=== PATIENT | female | born 1955 | race Caucasian/White ===

== ENCOUNTER → 2023-03-11 | Outpatient (CLI) | payer MEDICARE, OTHER ==
[~2023-03-11] MED LIST: ASPI81CH PO; FURO20 PO; MELO7.5 PO; Nitroglycerin0.4 MG SL
[2023-03-11 17:05] LABS: Albumin, Blood 3.7 g/dL (3.4-5.0); Albumin/Globulin Ratio 0.9 (0.8-1.8); Bilirubin, Total 0.4 mg/dL (0.1-1.0); Bun/Creatinine Ratio 23.7 (12.0-20.0); Calcium, Blood 8.9 mg/dL (8.5-10.1); Creatinine, Blood 0.68 mg/dL (0.40-1.00); Globulin, Blood 4.1 g/dL (2.2-4.0); Potassium, Blood 4.1 mmol/L (3.5-5.5); Total Protein, Blood 7.8 g/dL (6.4-8.2)
== END ==
LOC: LAB SHORT 11:40 → LAB 11:40
PROVIDERS: Physician Assistant
DX: R73.03 Prediabetes (principal)
CPT/HCPCS: 80053; 83036

== ENCOUNTER → 2023-10-20 | Outpatient (CLI) | payer MEDICARE, OTHER ==
[2023-10-20 14:09] LABS: Albumin/Globulin Ratio 0.6 (0.8-1.8); Bilirubin, Total 0.6 mg/dL (0.1-1.0); Bun/Creatinine Ratio 25.7 (12.0-20.0); Calcium, Blood 8.7 mg/dL (8.5-10.1); Creatinine, Blood 0.58 mg/dL (0.40-1.00); Globulin, Blood 4.8 g/dL (2.2-4.0); Potassium, Blood 3.6 mmol/L (3.5-5.5); Total Protein, Blood 7.8 g/dL (6.4-8.2)
== END | disposition home or self-care (01) ==
LOC: LAB 11:22 → LAB SHORT 11:22
PROVIDERS: Physician Assistant
DX: E78.2 Mixed hyperlipidemia (principal); R74.8 Abnormal levels of other serum enzymes
CPT/HCPCS: 80053

== ENCOUNTER → 2023-11-15 | Outpatient (CLI) | payer MEDICARE, OTHER ==
[2023-11-15 17:43] LABS: Percent Saturation 9.1 % (15.0-50.0)
[2023-11-16 19:07] LABS: HEPATITIS A ANTIBODY, IGM Negative (Negative); HEPATITIS B CORE ANTIBODY, IGM Negative (Negative); HEPATITIS B SURFACE ANTIGEN Negative (Negative); HEPATITIS C AB CIA INTERP Low Pos (Negative); HEPATITIS C ANTIBODY CIA INDEX 9.48 IV
[2023-11-17 17:39] LABS: HCV QNT BY NAAT (IU/ML) Not Detected; HCV QNT BY NAAT (LOG IU/ML) Not Detected; HCV QNT BY NAAT INTERP Not Detected (Not Detected)
== END ==
LOC: LAB SHORT 14:46 → LAB 14:46
PROVIDERS: Physician Assistant
DX: R74.8 Abnormal levels of other serum enzymes (principal)
CPT/HCPCS: 80074; 82728; 83540; 83550; 87522

== ENCOUNTER → 2023-11-28 | Outpatient (CLI) | payer MEDICARE, OTHER ==
[2023-11-28 15:00] LABS: Source, Urine Clean Catch
[2023-11-28 17:10] LABS: Appearance, Urine Hazy (Clear); Blood, Urine Neg (Neg); Color, Urine Amber (P-Yellow); Glucose Qualitative, Urine Neg (Neg); Ketones, Urine Neg (Neg); Leukocyte Esterase, Urine 2+ (Neg); Nitrite, Urine Neg (Neg); Protein, Urine 2+ (Neg); Urobilinogen, Urine 2+ (Normal)
[2023-11-28 18:02] LABS: Bilirubin, Urine 1+ (Neg)
[2023-11-28 18:04] LABS: Red Blood Cells, Urine 0-2 /hpf (0-2); Squamous Epithelial Cells Rare /hpf (Few)
[2023-11-28 18:05] LABS: Amorphous Light (0-Heavy); Bacteria Many /hpf; Calcium Oxalate Crystals Mod /hpf; Mucus Light (0-Heavy); Transitional Epithelial Cells Rare /hpf (0-Rare)
== END | disposition home or self-care (01) ==
LOC: LAB SHORT 14:52
PROVIDERS: Physician Assistant
DX: N39.0 Urinary tract infection, site not specified (principal)
CPT/HCPCS: 81001; 87086

== ENCOUNTER → 2023-11-30 | Outpatient (CLI) | payer MEDICARE, OTHER ==
[2023-11-30 15:32] LABS: Source, Urine Voided
[2023-11-30 16:27] LABS: Appearance, Urine Clear (Clear); Bilirubin, Urine Neg (Neg); Blood, Urine Neg (Neg); Color, Urine Yellow (P-Yellow); Glucose Qualitative, Urine Neg (Neg); Ketones, Urine Neg (Neg); Leukocyte Esterase, Urine Neg (Neg); Nitrite, Urine Neg (Neg); Protein, Urine Neg (Neg); Urobilinogen, Urine NORM (Normal)
== END | disposition home or self-care (01) ==
LOC: LAB SHORT 15:28
PROVIDERS: Physician Assistant
DX: N39.0 Urinary tract infection, site not specified (principal)
CPT/HCPCS: 81003

== ENCOUNTER 2023-12-25 18:41 | Inpatient (IN) | payer MEDICARE, OTHER ==
[~2023-12-25] VITALS: Ht 147.3 cm; Wt 67.7 kg
[2023-12-25] MEDS ORDERED: NS 1,000 ML IV SCH ×2 (19:00→19:35)
[2023-12-25 19:29] LABS: BASOPHILS ABSOLUTE AUTO 0.02 K/mm3 (0.00-0.23); BASOPHILS PERCENT AUTO 0 % (0-2); EOSINOPHILS ABSOLUTE AUTO 0.11 K/mm3 (0.00-0.68); EOSINOPHILS PERCENT AUTO 1 % (0-6); Hematocrit 34.5 % (33.0-51.0); Hemoglobin 11.5 g/dL (11.5-16.0); IMMATURE GRAN ABSOLUTE AUTO 0.03 K/mm3 (0.00-0.10); IMMATURE GRAN PERCENT AUTO 0 % (0-1); LYMPHOCYTES ABSOLUTE AUTO 0.58 K/mm3 (0.84-5.20); LYMPHOCYTES PERCENT AUTO 7 % (21-46); MONOCYTES PERCENT AUTO 4 % (4-13); Mean Corpuscular HGB 28.3 pg (26.0-34.0); Mean Corpuscular HGB Conc 33.3 g/dL (31.5-36.5); Mean Corpuscular Volume 85 fL (80-100); Mean Platelet Volume 9.9 fL (9.1-12.4); NEUTROPHILS PERCENT AUTO 87 % (41-73); Platelet Count 215 K/mm3 (150-400); RDW Coefficient Variation 15.5 % (11.7-14.2); Red Blood Cell Count 4.06 M/mm3 (3.80-5.20); White Blood Cell Count 8.14 K/mm3 (4.00-11.30)
[2023-12-25] MEDS ORDERED: Acetaminophen 500 MG Tab PO ONE (19:35)
[2023-12-25 19:50] LABS: Source, Urine Clean Catch
[2023-12-25 19:52] LABS: Appearance, Urine Clear (Clear); Bilirubin, Urine Neg (Neg); Blood, Urine Neg (Neg); Color, Urine Yellow (P-Yellow); Glucose Qualitative, Urine Neg (Neg); Ketones, Urine Neg (Neg); Leukocyte Esterase, Urine Neg (Neg); Nitrite, Urine Neg (Neg); Protein, Urine 1+ (Neg); Specific Gravity, Urine 1.015 (1.003-1.022); Urobilinogen, Urine 3+ (Normal)
[2023-12-25 19:59] LABS: Free Thyroxine 1.27 ng/dL (0.70-1.60); Magnesium, Blood 1.9 mg/dL (1.6-2.4)
[2023-12-25 20:18] LABS: Bun/Creatinine Ratio 29.4 (12.0-20.0); Calcium, Blood 8.1 mg/dL (8.5-10.1); Creatinine, Blood 0.54 mg/dL (0.40-1.00); Potassium, Blood 4.2 mmol/L (3.5-5.5); Thyroid Stimulating Hormone 0.834 uIU/mL (0.360-4.800)
[2023-12-25 20:30] LABS: Influenza A, PCR NEGATIVE (NEGATIVE); Influenza B, PCR NEGATIVE (NEGATIVE); Resp Syncytial Virus, PCR NEGATIVE (NEGATIVE); SARS-Cov-2 (COVID-19) PCR, MMC NEGATIVE (NEGATIVE)
[2023-12-25] MEDS ORDERED: ATOR20 PO (21:32)
[2023-12-25] MEDS ORDERED: CALCIUM CARBON500 M1 PO (21:33)
[2023-12-25] MEDS ORDERED: ZYRTEC10 M2 PO (21:33)
[2023-12-25] MEDS ORDERED: PANT20 PO (21:34)
[2023-12-25] MEDS ORDERED: ROWEEPRA PO (21:34)
[2023-12-25] MEDS ORDERED: POTA10T PO (21:34)
[2023-12-25] MEDS ORDERED: THERA-D2000 UNIT PO (21:35)
[2023-12-25] MEDS ORDERED: Seroquel Xr50 MG PO (21:35)
[2023-12-25] MEDS ORDERED: TIOT18 INH (21:35)
[2023-12-25] MEDS ORDERED: LevETIRAcetam 500 MG Tab PO ONE (21:50)
[2023-12-25] MEDS ORDERED: Nicotine 21 MG PATCH TOP ONE (21:50)
[2023-12-25] MEDS ORDERED: Ondansetron HCl 2 MG / ML 2ML Vial IV PRN ×2 (22:15→23:05)
[2023-12-25] MEDS ORDERED: Acetaminophen 325 MG TABLET PO PRN ×2 (22:20→23:05)
[2023-12-25] MEDS ORDERED: Magnesium Hydroxide Conc 10 ML UDC PO PRN ×2 (22:20→23:05)
[2023-12-25] MEDS ORDERED: Lactated Ringer's 1,000 ML IV SCH (23:05)
[2023-12-25 23:48] LABS: Anti-Xa UFH, PHA Monitoring <0.10 IU/mL; International Normalized Ratio 1.14; Prothrombin Time Results 12.1 Sec (9.7-11.5)
[2023-12-26] VITALS (7 sets, daily range): BP systolic 93–132; BP diastolic 61–82
[2023-12-26] MEDS ORDERED: Heparin Sodium,Porcine/0.5 NS 500 ML IV SCH (00:15)
[2023-12-26 00:29] LABS: Adenovirus Not Detected (NOT DETECT); Coronavirus 229E Not Detected (NOT DETECT); Coronavirus HKU1 Not Detected (NOT DETECT); Coronavirus NL63 Not Detected (NOT DETECT); Coronavirus OC43 Not Detected (NOT DETECT); SARS-Cov-2 (COVID-19), BioFire Not Detected (NOT DETECT)
[2023-12-26 00:30] LABS: Bordetella pertussis Not Detected (NOT DETECT); Chlamydophila pneumoniae Not Detected (NOT DETECT); Human Metapneumovirus Not Detected (NOT DETECT); Human Rhinovirus/Enterovirus Not Detected (NOT DETECT); Influenza A/2009-H1 Not Detected (NOT DETECT); Influenza A/H1 Not Detected (NOT DETECT); Influenza A/H3 Not Detected (NOT DETECT); Influenza B Not Detected (NOT DETECT); Mycoplasma pneumoniae Not Detected (NOT DETECT); Parainfluenza Virus 1 Not Detected (NOT DETECT); Parainfluenza Virus 2 Not Detected (NOT DETECT); Parainfluenza Virus 3 Not Detected (NOT DETECT); Parainfluenza Virus 4 Not Detected (NOT DETECT); Respiratory Syncytial Virus Not Detected (NOT DETECT)
--- NOTE | 2023-12-26 01:57 | NUR ---
NEW ADMISSION FROM ER PATIENT ADMITTED FROM ER AT 0000, REPORT RECEIVED FROM DEREK CUELLAR. PATIENT ARRIVED WITH PERSONAL BELONINGS: TSHIRT, CANE, COLORING COOK/CRAYONS. PATIENT C/O R KNEE PAIN MEDICATED WITH PRN TYLENOL AND HEAT PAD APPLIED. HEP GTT INITIATED AT 15U/KG/HR, NEW IV PLACED IN RH TO INITIATE LR AT 125/HR, VSS ON RA. SCHUYLER'S DAUGHTER LEI UPDATED AT 0145 ON THE PLAN OF CARE- WILL CALL BACK ON DAY SHIFT FOR ANOTHER UPDATED. MD HANCOCK CALLED WITH CRITICAL TROPONIN VALUE OF 4184 AT 0140- NO NEW ORDERS. PATIENT WITH NO CHEST PAIN OR DISCOMFORT AT THIS TIME, NSR ON TELEMETRY. ALL FALL RISK INTERVENTIONS IN PLACE DUE TO [facility] FELLOW AND PATIENT RESIDING IN A MEMORY CARE UNIT. A&OX3.
[2023-12-26] MEDS ORDERED: Tiotropium Bromide 2.5 MCG/ACT MIST INHAL (10 ACT/4 GM) INH SCH (02:10)
[2023-12-26 03:03] LABS: Hematocrit 30.8 % (33.0-51.0); Hemoglobin 10.3 g/dL (11.5-16.0); Mean Corpuscular HGB 28.2 pg (26.0-34.0); Mean Corpuscular HGB Conc 33.4 g/dL (31.5-36.5); Mean Corpuscular Volume 84 fL (80-100); Mean Platelet Volume 10.5 fL (9.1-12.4); Platelet Count 207 K/mm3 (150-400); RDW Coefficient Variation 15.7 % (11.7-14.2); RDW Standard Deviation 48.8 fL (35.1-46.3); Red Blood Cell Count 3.65 M/mm3 (3.80-5.20); White Blood Cell Count 5.51 K/mm3 (4.00-11.30)
[2023-12-26 03:20] LABS: Bun/Creatinine Ratio 28.3 (12.0-20.0); Calcium, Blood 7.7 mg/dL (8.5-10.1); Creatinine, Blood 0.5 mg/dL (0.40-1.00); Potassium, Blood 3.8 mmol/L (3.5-5.5)
--- NOTE | 2023-12-26 05:09 | NUR ---
Patient with urinary retention during the night, unable to void- straight cath x 1 with 800ml out of clear master urine. Patient complaining of some abdominal pain- last BM 8/25AM but possible constipation per pt- prn MOM given. Pt also has a hernia. Trops continue to rise- 3054, [id number], 4467- instructor product inspection MD notified. repeat troponin ordered for 0900 and echocardiogram ordered to r/o myocarditis as source of infection. Cardiology consult called in- pending. No other events, patient continues to deny chest pain & VSS on RA.
[2023-12-26] MEDS ORDERED: Pantoprazole Sodium 20 MG Tab PO SCH (06:00)
[2023-12-26] MEDS ORDERED: Dose Adjust by Pharmacy XX STA ×3 (07:55→21:56)
[2023-12-26] MEDS ORDERED: Heparin Sodium 5000 Units/ML 1ML MDV IV ONE ×3 (08:00→22:00)
[2023-12-26] MEDS ORDERED: CefTRIAXone 1000 MG Vial ONE (08:42)
[2023-12-26] MEDS ORDERED: NS 100 ML IV ONE (08:42)
[2023-12-26] MEDS ORDERED: LevETIRAcetam 500 MG Tab PO SCH (09:00)
[2023-12-26] MEDS ORDERED: Aspirin 81 MG Chew PO SCH (09:00)
[2023-12-26] MEDS ORDERED: Calcium Carbonate 1,250 MG TABLET PO SCH (09:00)
[2023-12-26] MEDS ORDERED: Enoxaparin 40 MG/0.4 ML SYR SC SCH ×2 (09:00)
[2023-12-26] MEDS ORDERED: CefTRIAXone Sodium 1,000 MG in NS 100 ML IV SCH (09:00)
[2023-12-26] MEDS ORDERED: Potassium Chloride 10 Meq Tablet SA PO SCH (09:00)
[2023-12-26] MEDS ORDERED: Cholecalciferol 1000 Unit Tablet (=25MCG) PO SCH (09:00)
[2023-12-26] MEDS ORDERED: Loratadine 10 MG Tab PO SCH (09:00)
--- NOTE | 2023-12-26 11:10 | NUR ---
AM NOTES; ECHO DONE THIS MORNING PT KEPT NPO AWAITING FOR RECORDS COORDINATOR TO SEE PT. HEP GT WAS INCREASED TO 19U/KG/HR TO REPEAT ANTI XA AT 1400. LR STILL RUNNING AT 125MLS/HR. PT HAS PUREWICK IN PLACE WORKING GOOD, DRAINING YELLOW URINE. PT HAS SPLINT ON LEFT HAND D/T POSS THUMB FX. PT HAS RGHT KNEE PAIN FROM FALL LEGS ELEVATED AT THIS TIME. PT IS ALERT AND ORIENTED X3-4 FORGETFUL AT TIMES. TALKATIVE. PT DENIES CHEST PAIN/PRESSURE. NO OTHER ISSUES OR CONCERNS AT THIS TIME. CALL LIGHTS IN REACH WILL CONTINUE TO MONITOR
--- NOTE | 2023-12-26 14:49 | NUR ---
STRAIGHT CATH DONE, PT TOLERATED WELL AND VOIDED 800ML'S.
--- NOTE | 2023-12-26 15:37 | NUR ---
BOLUS OF HEPRIN GIVEN, VERIFIED DOSE & INFUSION RUNNING BY TWO ADDITIONAL NURSES.
--- NOTE | 2023-12-26 18:07 | NUR ---
PT SUMMARY; PT CONTINUES ON HEP GTT AT 21/KG/HR, LR AT 125MLS/HR. VITALS HRR SR 80'S, SBP 115, SATS ABOVE 95% ON RA, AFEBRILE. PT REMAINS ALERT AND FORGETFUL SOMETIMES REPEATS HERSELF AND TALKATIVE. PT DENIES ANY CHEST PAIN/PRESSURE DR XIE SAW PT TODAY RECOMMENDED HEP GTT INFUSION FOR COUPLE MORE DAYS AND POSSIBLY START PLAVIX SINCE PT IS NOT SYMPTOMATIC AND NOT HAVING CHEST PAINS. PHYSICAL THERAPSIT ABLT TO WORK WITH THE PT, PT HAS BEEN TRANSFERRING VIA 1PA TO THE BEDSIDE COMMODE. PT WAS UNABLE TO VOID T/O SHIFT BLADDER SCAN SHOWED >800MLS URINE RETAINED PT ABLE TO TO VOID 300 MLS STILL RETAINING >700MLS POST VOID BLADDER SCAN, STRAIGHT CATH PERFORMED 800MLS URINE DRAINED. MADE AWARE OKAY TO PLACE CATHETER IF PT STILL UNABLE TO VOID T/O NIGHT, PT WAS ABLE TO USE BSC AGAIN BEFORE SHIFT CHANGE ABOUT 300MLS. DAUGHTER LEI CAME IN TO VISIT AND WAS GIVEN UPDATE REGARDING PT'S STATUS. CT ABD/PELVIS TO BE DONE TECH WAS CALLED TO VERIFY ORDERS TO POSSIBLY GET PROCEDURE DONE TONIGHT. NO OTHER ISSUES ENCOUNTERED WILL REPORT TO ONCOMING SHIFT
[2023-12-26] MEDS ORDERED: QUEtiapine Fumarate 50 MG TAB PO SCH (21:00)
[2023-12-26] MEDS ORDERED: Atorvastatin 10 MG Tab PO SCH (21:00)
[2023-12-27 01:37] VITALS: BP 93/65
[2023-12-27 03:24] VITALS: BP 107/70
--- NOTE | 2023-12-27 03:49 | NUR ---
SHIFT SUMMARY- PATIENT SLEPT WELL TONIGHT, UNEVENTFUL NIGHT. VSS ON RA, PRN TYLENOL GIVEN FOR RIGHT KNEE PAIN. PATIENT GETTING OOB TO BSC WITH ASSIST X2 TO VOID. NO BM THIS SHIFT, PRN MOM GIVEN FOR CONSTIPATION. HEPARIN GTT RATE INCREASED TO 23U/KG/HR OVERNIGHT WITH 1500UNIT BOLUS. IV PATENCY CHECKED- WNL WITH BLOOD RETURN. TOLERATING A SOFT/BITE SIZED DIET. CT ABD COMPLETED AT END OF DAY SHIFT. NO OTHER COMPLAINTS AT THIS TIME.
[2023-12-27 04:37] LABS: BASOPHILS ABSOLUTE AUTO 0.02 K/mm3 (0.00-0.23); BASOPHILS PERCENT AUTO 1 % (0-2); EOSINOPHILS PERCENT AUTO 5 % (0-6); Hematocrit 32.2 % (33.0-51.0); Hemoglobin 10.7 g/dL (11.5-16.0); IMMATURE GRAN ABSOLUTE AUTO 0.02 K/mm3 (0.00-0.10); IMMATURE GRAN PERCENT AUTO 1 % (0-1); LYMPHOCYTES ABSOLUTE AUTO 1.35 K/mm3 (0.84-5.20); LYMPHOCYTES PERCENT AUTO 32 % (21-46); MONOCYTES PERCENT AUTO 5 % (4-13); Mean Corpuscular HGB 28.7 pg (26.0-34.0); Mean Corpuscular HGB Conc 33.2 g/dL (31.5-36.5); Mean Corpuscular Volume 86 fL (80-100); Mean Platelet Volume 10.6 fL (9.1-12.4); NEUTROPHILS ABSOLUTE AUTO 2.44 K/mm3 (1.96-9.15); NEUTROPHILS PERCENT AUTO 58 % (41-73); Platelet Count 174 K/mm3 (150-400); RDW Coefficient Variation 15.7 % (11.7-14.2); RDW Standard Deviation 49.2 fL (35.1-46.3); Red Blood Cell Count 3.73 M/mm3 (3.80-5.20); White Blood Cell Count 4.23 K/mm3 (4.00-11.30)
[2023-12-27 04:56] LABS: Albumin, Blood 1.8 g/dL (3.4-5.0); Albumin/Globulin Ratio 0.4 (0.8-1.8); Bilirubin, Total 0.7 mg/dL (0.1-1.0); Bun/Creatinine Ratio 18.4 (12.0-20.0); Calcium, Blood 8.1 mg/dL (8.5-10.1); Creatinine, Blood 0.54 mg/dL (0.40-1.00); Globulin, Blood 5.1 g/dL (2.2-4.0); Potassium, Blood 3.7 mmol/L (3.5-5.5); Total Protein, Blood 6.9 g/dL (6.4-8.2)
[2023-12-27] MEDS ORDERED: Clarify Drug Order XX ONE (05:15)
[2023-12-27 08:19] VITALS: BP 118/67
[2023-12-27 11:19] VITALS: BP 124/76
[2023-12-27] MEDS ORDERED: Dose Adjust by Pharmacy XX STA (11:43)
[2023-12-27] MEDS ORDERED: Heparin Sodium 5000 Units/ML 1ML MDV IV ONE ×2 (11:45→19:30)
[2023-12-27 15:08] VITALS: BP 138/84
--- NOTE | 2023-12-27 18:15 | NUR ---
SHIFT SUMMARY A&Ox4, CALLS AND COMMUNICATES NEEDS APPROPRIATELY, MOMENTS OF CONFUSION. BP STABLE, SINUS 80's, DENIES CP/PRESSURE. SpO2> 92% RA, DENIES SOB. 1 ASSIST TO CHAIR/BSC, IN/CONTINENT OF URINE, NO BM THIS SHIFT. C/O CHRONIC BACK PAIN, MEDICATED PER EMAR AND PROVIDED HEAT PACK. PT STATES THAT SHE IS READY TO GO HOME. NO OTHER EVENTS, WILL REPORT TO ONCOMING RN.
[2023-12-27 20:24] VITALS: BP 132/62
[2023-12-28 00:09] VITALS: BP 131/84
--- NOTE | 2023-12-28 00:30 | NUR ---
HEPARIN GTT STOPPED AT MD PER ORDER.
[2023-12-28 02:25] LABS: BASOPHILS ABSOLUTE AUTO 0.02 K/mm3 (0.00-0.23); BASOPHILS PERCENT AUTO 1 % (0-2); EOSINOPHILS ABSOLUTE AUTO 0.17 K/mm3 (0.00-0.68); EOSINOPHILS PERCENT AUTO 4 % (0-6); Hematocrit 30.1 % (33.0-51.0); IMMATURE GRAN PERCENT AUTO 0 % (0-1); LYMPHOCYTES ABSOLUTE AUTO 0.99 K/mm3 (0.84-5.20); LYMPHOCYTES PERCENT AUTO 25 % (21-46); MONOCYTES PERCENT AUTO 5 % (4-13); Mean Corpuscular HGB 28.5 pg (26.0-34.0); Mean Corpuscular HGB Conc 33.2 g/dL (31.5-36.5); Mean Corpuscular Volume 86 fL (80-100); Mean Platelet Volume 10.3 fL (9.1-12.4); NEUTROPHILS ABSOLUTE AUTO 2.53 K/mm3 (1.96-9.15); NEUTROPHILS PERCENT AUTO 65 % (41-73); Platelet Count 170 K/mm3 (150-400); RDW Coefficient Variation 15.8 % (11.7-14.2); RDW Standard Deviation 49.4 fL (35.1-46.3); Red Blood Cell Count 3.51 M/mm3 (3.80-5.20); White Blood Cell Count 3.91 K/mm3 (4.00-11.30)
[2023-12-28 02:48] LABS: Albumin, Blood 1.8 g/dL (3.4-5.0); Albumin/Globulin Ratio 0.4 (0.8-1.8); Bilirubin, Total 0.6 mg/dL (0.1-1.0); Bun/Creatinine Ratio 14.1 (12.0-20.0); Calcium, Blood 7.6 mg/dL (8.5-10.1); Creatinine, Blood 0.64 mg/dL (0.40-1.00); Potassium, Blood 3.8 mmol/L (3.5-5.5); Total Protein, Blood 6.8 g/dL (6.4-8.2)
[2023-12-28 04:42] VITALS: BP 98/55
--- NOTE | 2023-12-28 05:09 | NUR ---
SHIFT SUMMARY PT RESTED DURING THE NIGHT. PAIN MANAGED PER EMAR. PT USING PUREWICK FOR VOIDS, YELLOW RUINE DRAINING. TOLERATING PO INTAKE. L WRIST IN SPLINT. PT HAD HEPARIN DRIP STOPPED AT . VSCyndee. NO OTHER CONCERNS AT THIS TIME, CALL LIGHT WITHIN REACH
[2023-12-28] MEDS ORDERED: Clopidogrel Bisulfate 75 MG Tab PO SCH (09:00)
[2023-12-28 09:08] VITALS: BP 133/64
[2023-12-28] MEDS ORDERED: Polyethylene Glycol 3350 17 gm PO PRN (12:10)
[2023-12-28] MEDS ORDERED: Docusate Sodium/Senna 1 Tab PO PRN (12:10)
--- NOTE | 2023-12-28 13:33 | NUR ---
TRANSFER NOTE- PT TRANSFERED TO MEDICAL FLOOR FROM PCU. PT ARRIVED ON MED FLOOR VIA WC, ON ROOM AIR NO S&S OF DISTRESS NOTED, LUNG SOUNDS CLEAR. CALLED TELE THEY TRANSFERED THE PT TO MED FLOOR ROOM 334. PT WAS ASSISTED TO THE BATHROOM 1PA WITH A FWW AND GAIT BELT, SHE USED THE CALL LIGHT AND PULL CORD APPROPRIATELY. PT ASSISTED BACK TO BED, NO S&S OF DISTRESS NOTED; SHE DID STATE SHE HAS THE CHILLS NOW. INCREASED THE ROOM TEMP A LITTLE IT WAS SET LOW.
[2023-12-28 14:38] VITALS: BP 143/84
--- NOTE | 2023-12-28 16:07 | NUR ---
CALLED DR RUSSO- DR RUSSO RETURNED CALL. THIS RN SPOKE TO HIM. THE PT HAS ELEVATED TEMP 99.8 SHE WAS MEDICATED WITH TYLENOL, RECHECK SHOWS 101.5 ON THE RIGHT AND 102.5 ON THE LEFT. SPOKE TO WHO RELAYED ORAL TEMPS ONLY. ORALY POST TYLENOL TEMP IS 99.1. SPOKE TO ABOUT THE PT EARS THE LEFT EYE IS A LITTLE BLOODSHOT IN APPEARANCE AND THE LEFT EAR APPEARS TO BE A LITTLE IRRITATED. DR AWARE AND WILL ASSESS PT EARS TOMORROW. PT HAS NOT YET BEEN SEEN BY ORTHO, BUT THE CONSULT WAS CALLED.
--- NOTE | 2023-12-28 16:25 | NUR ---
SHIFT SUMMARY- PT C/O HAVING THE CHILLS. MD AWARE. TEMP SLIGHTLY ELEVATED. LEFT EYE BLOODSHOT, LEFT EAR SEEMS A LITTLE IRRITATED, MD AWARE. PT IN BED, CALL LIGHT IN REACH NO S&S OF DISTRESS NOTED. PT CALLS APPROPRIATELY INCONTINENT, CONTINENT OF URINE. MEDICATED WITH DOCUSENNA AND MIRALAX PT HAS HAD NO STOOLS DESPITE RECIEVING 3 DOSES OF MOM IN THE LAST 48 HOURS. PT DECLINED PRUNE JUICE, STATING "YUCK!" ORTHO CONSULT IN AND CALLED FOR WRIST FRACTURE.
--- NOTE | 2023-12-28 16:47 | NUR ---
TRANSFERED TO [facility] 334 @1311 PT PLESENT THROUGHT SHIFT, VITAL SIGNS WITHIN NORMAL LIMITS AND STABLE, SEE SHIFT SUMMARY AND CHARTED VITALS FOR MORE INFORMATION, REPORT GIVEN TO [facility] FLOOR NURSE, AND UPDATED DAUGHTER. PT WORKED WITH OT BEFORE LEAVING PCU FLOOR AND WENT DOWN TO X-RAY FOR IMAGING OF THUMB, DOCTOR NOTIFIED OF CONTUNIED BOWEL CARE EMAR UPDATED. PT TRANSFERED WITH ALL BELONGINGS.
[2023-12-28 19:28] VITALS: BP 102/56
[2023-12-29 03:05] VITALS: BP 107/62
--- NOTE | 2023-12-29 05:18 | NUR ---
CHANNEL ROUGHER PATIENT IS A&OX4 BUT FORGETFUL, SOFT BP, ON ROOM AIR, ON TELE RUNNING SINUS RHYTHM AT 89, COMPLAINED OF HEADACHE DURING THE SHIFT, PRN TYLENOL WAS GIVEN. PATIENT CALLS APPROPRIATELY, CALL LIGHT IN REACH, AND BED AT A LOWER POSITION PATIENT FELL AT HOME A HAD A SMALL FRACTURE TO HER LEFT WRIST, HAS A BRACES ORDER TO HAVE ON LEFT HAND AT ALL TIMES.
[2023-12-29 05:53] LABS: BASOPHILS ABSOLUTE AUTO 0.01 K/mm3 (0.00-0.23); BASOPHILS PERCENT AUTO 0 % (0-2); EOSINOPHILS ABSOLUTE AUTO 0.28 K/mm3 (0.00-0.68); EOSINOPHILS PERCENT AUTO 8 % (0-6); Hematocrit 34.3 % (33.0-51.0); Hemoglobin 11.3 g/dL (11.5-16.0); IMMATURE GRAN ABSOLUTE AUTO 0.02 K/mm3 (0.00-0.10); IMMATURE GRAN PERCENT AUTO 1 % (0-1); LYMPHOCYTES ABSOLUTE AUTO 0.95 K/mm3 (0.84-5.20); LYMPHOCYTES PERCENT AUTO 26 % (21-46); MONOCYTES ABSOLUTE AUTO 0.19 K/mm3 (0.16-1.47); MONOCYTES PERCENT AUTO 5 % (4-13); Mean Corpuscular HGB 28.3 pg (26.0-34.0); Mean Corpuscular HGB Conc 32.9 g/dL (31.5-36.5); Mean Corpuscular Volume 86 fL (80-100); Mean Platelet Volume 10.7 fL (9.1-12.4); NEUTROPHILS ABSOLUTE AUTO 2.22 K/mm3 (1.96-9.15); NEUTROPHILS PERCENT AUTO 61 % (41-73); Platelet Count 185 K/mm3 (150-400); RDW Coefficient Variation 15.7 % (11.7-14.2); RDW Standard Deviation 49.3 fL (35.1-46.3); White Blood Cell Count 3.67 K/mm3 (4.00-11.30)
[2023-12-29 06:27] LABS: Albumin, Blood 1.8 g/dL (3.4-5.0); Albumin/Globulin Ratio 0.3 (0.8-1.8); Bilirubin, Total 0.7 mg/dL (0.1-1.0); Bun/Creatinine Ratio 18.7 (12.0-20.0); Calcium, Blood 8.1 mg/dL (8.5-10.1); Creatinine, Blood 0.59 mg/dL (0.40-1.00); Globulin, Blood 5.5 g/dL (2.2-4.0); Potassium, Blood 3.8 mmol/L (3.5-5.5); Total Protein, Blood 7.3 g/dL (6.4-8.2)
[2023-12-29 07:02] VITALS: BP 107/69
[2023-12-29] MEDS ORDERED: CEFP200 PO (14:27)
[2023-12-29] MEDS ORDERED: CLOP75 PO (14:27)
--- NOTE | 2023-12-29 16:29 | NUR ---
VSS, A-Ox4, forgetful, denies SOB, denies any pain, ambulates with 1x assist and walker, on RA, L wrist brace in place at all time. Pt D/C at 1550, report given to Leonie, safety ensured.
== END 2023-12-29 15:59 | disposition home or self-care (01) | DRG 871 ==
LOC: ER 18:41 → MEDS 22:15 → PCU 22:15 → MEDS 12-28 13:05 → ENPENDDIS 12-29 11:42 → MEDS 12-29 15:59
PROVIDERS: Emergency Medicine; Internal Medicine; ADMIT Internal Medicine
DX: A41.9 Sepsis, unspecified organism (principal); I21.4 Non-ST elevation (NSTEMI) myocardial infarction; S52.515A Nondisplaced fracture of left radial styloid process, initial encounter for closed fracture; E87.1 Hypo-osmolality and hyponatremia; J43.9 Emphysema, unspecified; F03.90 Unspecified dementia, unspecified severity, without behavioral disturbance, psychotic disturbance, mood disturbance, and anxiety; I25.5 Ischemic cardiomyopathy; R65.20 Severe sepsis without septic shock; F17.210 Nicotine dependence, cigarettes, uncomplicated; K44.9 Diaphragmatic hernia without obstruction or gangrene; G40.909 Epilepsy, unspecified, not intractable, without status epilepticus; E78.5 Hyperlipidemia, unspecified; K21.9 Gastro-esophageal reflux disease without esophagitis; M19.90 Unspecified osteoarthritis, unspecified site; S00.01XA Abrasion of scalp, initial encounter; F10.10 Alcohol abuse, uncomplicated; R33.9 Retention of urine, unspecified; S62.522A Displaced fracture of distal phalanx of left thumb, initial encounter for closed fracture; W18.30XA Fall on same level, unspecified, initial encounter; Z88.0 Allergy status to penicillin; Z88.8 Allergy status to other drugs, medicaments and biological substances; Z79.82 Long term (current) use of aspirin; Z79.899 Other long term (current) drug therapy
CPT/HCPCS: 0202U; 0241U; 29125; 36415; 51701; 70450; 71045; 71260; 72125; 73110; 73140; 73200; 74177; 80048; 80053; 82607; 83605; 83735; 84439; 84443; 84484; 85025; 85027; 85520; 85610; 85730; 87040; 87070; 87205; 93005; 93010; 93306; 94640; 94664; 94760; 94762; 96360-59; 97116; 97161; 97165; 97530; 99285-25; A9270; J0696; J1644; J2470; J7030; J7120; Q9967

== ENCOUNTER → 2024-02-02 | Outpatient (CLI) | payer MEDICARE, OTHER ==
[~2024-02-02] MED LIST changes: +ATOR20 PO; +CALCIUM CARBON500 M1 PO; +CEFP200 PO; +CLOP75 PO; +PANT20 PO; +POTA10T PO; +ROWEEPRA PO; +Seroquel Xr50 MG PO; +THERA-D2000 UNIT PO; +TIOT18 INH; +ZYRTEC10 M2 PO
[2024-02-02 14:49] LABS: Source, Urine Clean Catch
[2024-02-02 16:07] LABS: Appearance, Urine Hazy (Clear); Bilirubin, Urine Neg (Neg); Blood, Urine Neg (Neg); Glucose Qualitative, Urine Neg (Neg); Ketones, Urine Neg (Neg); Leukocyte Esterase, Urine 1+ (Neg); Nitrite, Urine Neg (Neg); Protein, Urine Neg (Neg); Urobilinogen, Urine NORM (Normal)
[2024-02-02 16:40] LABS: Color, Urine Pale Yellow (P-Yellow)
[2024-02-02 16:41] LABS: Bacteria Many /hpf; Red Blood Cells, Urine 0-2 /hpf (0-2); Squamous Epithelial Cells Few /hpf (Few)
== END | disposition home or self-care (01) ==
LOC: LAB 14:47 → LAB SHORT 14:47
PROVIDERS: Physician Assistant
DX: N39.0 Urinary tract infection, site not specified (principal)
CPT/HCPCS: 81001; 87086

== ENCOUNTER 2024-05-02 16:20 | Emergency (ER) | payer MEDICARE, OTHER ==
[~2024-05-02] VITALS: Ht 147.3 cm; Wt 63.0 kg
[2024-05-02 17:21] LABS: BASOPHILS ABSOLUTE AUTO 0.03 K/mm3 (0.00-0.23); BASOPHILS PERCENT AUTO 0 % (0-2); EOSINOPHILS ABSOLUTE AUTO 0.03 K/mm3 (0.00-0.68); EOSINOPHILS PERCENT AUTO 0 % (0-6); Hematocrit 34.4 % (33.0-51.0); IMMATURE GRAN ABSOLUTE AUTO 0.02 K/mm3 (0.00-0.10); IMMATURE GRAN PERCENT AUTO 0 % (0-1); LYMPHOCYTES ABSOLUTE AUTO 0.95 K/mm3 (0.84-5.20); LYMPHOCYTES PERCENT AUTO 12 % (21-46); MONOCYTES ABSOLUTE AUTO 0.63 K/mm3 (0.16-1.47); MONOCYTES PERCENT AUTO 8 % (4-13); Mean Corpuscular HGB 28.6 pg (26.0-34.0); Mean Corpuscular Volume 90 fL (80-100); Mean Platelet Volume 11.5 fL (9.1-12.4); NEUTROPHILS ABSOLUTE AUTO 6.26 K/mm3 (1.96-9.15); NEUTROPHILS PERCENT AUTO 79 % (41-73); Platelet Count 176 K/mm3 (150-400); RDW Coefficient Variation 14.2 % (11.7-14.2); RDW Standard Deviation 46.3 fL (35.1-46.3); Red Blood Cell Count 3.84 M/mm3 (3.80-5.20); White Blood Cell Count 7.92 K/mm3 (4.00-11.30)
[2024-05-02] MEDS ORDERED: MethylPREDNISolone Sod Succ 125 MG Vial IV ONE (17:25)
[2024-05-02 17:44] LABS: Influenza A, PCR NEGATIVE (NEGATIVE); Influenza B, PCR NEGATIVE (NEGATIVE); Resp Syncytial Virus, PCR NEGATIVE (NEGATIVE); SARS-Cov-2 (COVID-19) PCR, MMC NEGATIVE (NEGATIVE)
[2024-05-02 17:47] LABS: Albumin, Blood 2.9 g/dL (3.4-5.0); Albumin/Globulin Ratio 0.6 (0.8-1.8); Bilirubin, Total 0.5 mg/dL (0.1-1.0); Bun/Creatinine Ratio 26.9 (12.0-20.0); Calcium, Blood 8.6 mg/dL (8.5-10.1); Creatinine, Blood 0.63 mg/dL (0.40-1.00); Globulin, Blood 4.7 g/dL (2.2-4.0); Potassium, Blood 3.4 mmol/L (3.5-5.5); Total Protein, Blood 7.6 g/dL (6.4-8.2)
[2024-05-02] MEDS ORDERED: Nicotine 21 MG PATCH TOP ONE (19:15)
[2024-05-02] MEDS ORDERED: PRED20 PO (19:23)
[2024-05-02 20:00] VITALS: BP 119/72
== END 2024-05-02 20:27 | disposition home or self-care (01) ==
LOC: ER 16:20
PROVIDERS: Student in an Organized Health Care Education/Training Program
DX: J44.1 Chronic obstructive pulmonary disease with (acute) exacerbation (principal); E78.5 Hyperlipidemia, unspecified; F17.200 Nicotine dependence, unspecified, uncomplicated; Z79.02 Long term (current) use of antithrombotics/antiplatelets; Z79.82 Long term (current) use of aspirin; Z79.899 Other long term (current) drug therapy; Z88.1 Allergy status to other antibiotic agents; Z88.0 Allergy status to penicillin
CPT/HCPCS: 0241U; 71045; 80053; 85025; 93005; 93010; 96374; 99285-25; A9270; J2919

== ENCOUNTER 2024-05-04 11:21 | Inpatient (IN) | payer MEDICARE, OTHER ==
[~2024-05-04] VITALS: Ht 147.3 cm; Wt 61.3 kg
[~2024-05-04 11:21] MED LIST changes: +PRED20 PO
[2024-05-04] MEDS ORDERED: Albuterol 2.5 MG/3 ML VIAL INH SCH (11:55)
[2024-05-04] MEDS ORDERED: Ipratropium Bromide INH 0.02% 0.5 mg/2.5ML Vial INH SCH (11:55)
[2024-05-04 12:10] LABS: BASOPHILS ABSOLUTE AUTO 0.04 K/mm3 (0.00-0.23); BASOPHILS PERCENT AUTO 0 % (0-2); EOSINOPHILS PERCENT AUTO 0 % (0-6); Hematocrit 36.4 % (33.0-51.0); Hemoglobin 11.8 g/dL (11.5-16.0); IMMATURE GRAN ABSOLUTE AUTO 0.05 K/mm3 (0.00-0.10); IMMATURE GRAN PERCENT AUTO 0 % (0-1); LYMPHOCYTES ABSOLUTE AUTO 0.35 K/mm3 (0.84-5.20); LYMPHOCYTES PERCENT AUTO 3 % (21-46); MONOCYTES ABSOLUTE AUTO 0.38 K/mm3 (0.16-1.47); MONOCYTES PERCENT AUTO 3 % (4-13); Mean Corpuscular HGB 28.7 pg (26.0-34.0); Mean Corpuscular HGB Conc 32.4 g/dL (31.5-36.5); Mean Corpuscular Volume 89 fL (80-100); Mean Platelet Volume 11.1 fL (9.1-12.4); NEUTROPHILS ABSOLUTE AUTO 10.73 K/mm3 (1.96-9.15); NEUTROPHILS PERCENT AUTO 93 % (41-73); Platelet Count 180 K/mm3 (150-400); RDW Standard Deviation 45.6 fL (35.1-46.3); Red Blood Cell Count 4.11 M/mm3 (3.80-5.20); White Blood Cell Count 11.55 K/mm3 (4.00-11.30)
[2024-05-04 12:34] LABS: CORONAVIRUS COVID-19 AG Negative (NEGATIVE); INFLUENZA A AG Negative (NEGATIVE); INFLUENZA B AG Negative (NEGATIVE)
[2024-05-04 12:39] LABS: Albumin/Globulin Ratio 0.6 (0.8-1.8); Bilirubin, Total 0.5 mg/dL (0.1-1.0); Bun/Creatinine Ratio 31.8 (12.0-20.0); Calcium, Blood 8.6 mg/dL (8.5-10.1); Creatinine, Blood 0.54 mg/dL (0.40-1.00); Globulin, Blood 5.3 g/dL (2.2-4.0); Potassium, Blood 4.1 mmol/L (3.5-5.5); Total Protein, Blood 8.3 g/dL (6.4-8.2)
[2024-05-04] MEDS ORDERED: CefTRIAXone Sodium 1,000 MG in NS 100 ML IV ONE (13:05)
[2024-05-04] MEDS ORDERED: Azithromycin 500 MG in NS 250 ML IV ONE (13:05)
[2024-05-04] MEDS ORDERED: Magnesium Hydroxide Conc 10 ML UDC PO ONE (14:50)
[2024-05-04] MEDS ORDERED: Ondansetron 4 MG TAB PO PRN (14:55)
[2024-05-04] MEDS ORDERED: FLU VACC TS2024-25(6MOS UP)/PF 45 MCG/0.5 ML SYRINGE IM SCH (14:55)
[2024-05-04 17:19] VITALS: BP 186/82
[2024-05-04] MEDS ORDERED: HydrALAZINE HCl 20 MG / ML 1ML Vial IV PRN (17:30)
[2024-05-04 18:17] VITALS: BP 151/73
[2024-05-04] MEDS ORDERED: Nicotine 14 MG PATCH TOP SCH (18:35)
--- NOTE | 2024-05-04 18:37 | NUR ---
ADMIT NOTE PT A&OX4, PT HAS HX OF DEMENTIA, PT ADMITTED FOR ACUTE RESP. FAILURE. PT ADMITTED AT 1719. PT TRANSFERED WITH SLIDER SHEET FROM ER BED. PT ON ADMIT HAD BP OF 186/82, CALLED DR. XAVIER, GOT A ONE TIME ORDER FOR HYDRALAZINE. PT BP AT 1817 WAS 151/73. PT REPORTS NO CHEST PAIN. PT REPORTS SOB, HOB ELEVATED. PT IS ON 4L VIA N/C. SPO2 IS 95%. PT HAS DAUGHTER IN ROOM. CALLED [facility] TO FAX OVER MED LIST, WILL ASK NIGHT NURSE TO RECONCILE MEDS. PT ORIENTED TO ROOM AND CALL LIGHT. BELONGINGS ARE WITH PT. PLAN IS TO DO RESP. PANAL. PT BED IN LOWEST POSITION, CALL LIGHT IN REACH. PT REPORTS INC. OF URINE, BREIFS IN PLACE, PT REPORTS CONSTIPATION AND ABD PAIN, HAD MILK OF MAG IN ER.
[2024-05-04 19:40] VITALS: BP 151/75
[2024-05-04] MEDS ORDERED: GuaiFENesin 600 MG TabCR PO SCH (21:00)
[2024-05-04 21:49] LABS: Adenovirus Not Detected (NOT DETECT); Bordetella pertussis Not Detected (NOT DETECT); Chlamydophila pneumoniae Not Detected (NOT DETECT); Coronavirus 229E Not Detected (NOT DETECT); Coronavirus HKU1 Not Detected (NOT DETECT); Coronavirus NL63 Not Detected (NOT DETECT); Coronavirus OC43 Detected (NOT DETECT); Human Metapneumovirus Not Detected (NOT DETECT); Human Rhinovirus/Enterovirus Not Detected (NOT DETECT); Influenza A/2009-H1 Not Detected (NOT DETECT); Influenza A/H1 Not Detected (NOT DETECT); Influenza A/H3 Not Detected (NOT DETECT); Influenza B Not Detected (NOT DETECT); Mycoplasma pneumoniae Not Detected (NOT DETECT); Parainfluenza Virus 1 Not Detected (NOT DETECT); Parainfluenza Virus 2 Not Detected (NOT DETECT); Parainfluenza Virus 3 Not Detected (NOT DETECT); Parainfluenza Virus 4 Not Detected (NOT DETECT); Respiratory Syncytial Virus Not Detected (NOT DETECT); SARS-Cov-2 (COVID-19), BioFire Not Detected (NOT DETECT)
[2024-05-04] MEDS ORDERED: Docusate Sodium 100 MG Cap PO SCH (22:10)
[2024-05-04] MEDS ORDERED: Acetaminophen 325 MG TABLET PO PRN (22:10)
[2024-05-04] MEDS ORDERED: Acetaminophen650 M1 PO (23:58)
[2024-05-04] MEDS ORDERED: ALMACONE SUSPE355 ML PO (23:58)
[2024-05-05] MEDS ORDERED: [UNRECOGNIZED DRUG - OTHER] TOP
[2024-05-05] MEDS ORDERED: BISA10S PR
[2024-05-05] MEDS ORDERED: ALEVE ARTHRITI100 GM TOP (00:01)
[2024-05-05] MEDS ORDERED: Fleet Enema132 ML PR (00:02)
[2024-05-05] MEDS ORDERED: ICY HOT TOP (00:03)
[2024-05-05] MEDS ORDERED: LOPE2C PO (00:05)
[2024-05-05] MEDS ORDERED: DULCOLAX400 MG/5 M PO (00:06)
[2024-05-05] MEDS ORDERED: NYAMYC15 G1 TOP (00:06)
[2024-05-05] MEDS ORDERED: ONDA4ODT MM (00:07)
[2024-05-05] MEDS ORDERED: PRED20 PO (00:08)
[2024-05-05] MEDS ORDERED: QUET25 PO (00:09)
[2024-05-05] MEDS ORDERED: Triple Antibi28.4 G1 TOP (00:10)
[2024-05-05] MEDS ORDERED: THERA-D2000 UNIT PO (00:11)
[2024-05-05] MEDS ORDERED: ALBU90OI INH (00:11)
[2024-05-05 03:28] VITALS: BP 126/80
--- NOTE | 2024-05-05 04:45 | NUR ---
SHIFT SUMMARY PATIENT HAD NO ACUTE CHANGES. AXO X 3-4 WITH HX DEMENTIA. PIV INTACT. ONE ASSIST W/FWW TO BSC. DENIES CHEST PAIN, SOB, AND N/V. REPORTED HIP PAIN X TWO AND TYLENOL 650 MG GIVEN PER EVENT. RESPIRATORY PANEL LAB CORONAVIRUS OC43 DETECTED. CALL LIGHT IN REACH. BED IN LOWEST POSITION. WILL CONTINUE TO MONITOR UNTIL DAY SHIFT NURSE ASSUMES CARE.
[2024-05-05 05:29] LABS: BASOPHILS ABSOLUTE AUTO 0.01 K/mm3 (0.00-0.23); BASOPHILS PERCENT AUTO 0 % (0-2); EOSINOPHILS PERCENT AUTO 0 % (0-6); Hematocrit 35.3 % (33.0-51.0); Hemoglobin 11.4 g/dL (11.5-16.0); IMMATURE GRAN ABSOLUTE AUTO 0.06 K/mm3 (0.00-0.10); IMMATURE GRAN PERCENT AUTO 1 % (0-1); LYMPHOCYTES ABSOLUTE AUTO 0.75 K/mm3 (0.84-5.20); LYMPHOCYTES PERCENT AUTO 7 % (21-46); MONOCYTES ABSOLUTE AUTO 0.88 K/mm3 (0.16-1.47); MONOCYTES PERCENT AUTO 8 % (4-13); Mean Corpuscular HGB 28.6 pg (26.0-34.0); Mean Corpuscular HGB Conc 32.3 g/dL (31.5-36.5); Mean Corpuscular Volume 89 fL (80-100); Mean Platelet Volume 11.6 fL (9.1-12.4); NEUTROPHILS ABSOLUTE AUTO 9.51 K/mm3 (1.96-9.15); NEUTROPHILS PERCENT AUTO 85 % (41-73); Platelet Count 184 K/mm3 (150-400); RDW Coefficient Variation 14.1 % (11.7-14.2); RDW Standard Deviation 45.8 fL (35.1-46.3); Red Blood Cell Count 3.99 M/mm3 (3.80-5.20); White Blood Cell Count 11.21 K/mm3 (4.00-11.30)
[2024-05-05] MEDS ORDERED: Pantoprazole Sodium 40 MG Tab PO SCH (06:00)
[2024-05-05 06:01] LABS: Albumin, Blood 2.8 g/dL (3.4-5.0); Albumin/Globulin Ratio 0.5 (0.8-1.8); Bilirubin, Total 0.4 mg/dL (0.1-1.0); Calcium, Blood 9.1 mg/dL (8.5-10.1); Creatinine, Blood 0.46 mg/dL (0.40-1.00); Globulin, Blood 5.1 g/dL (2.2-4.0); Magnesium, Blood 2.5 mg/dL (1.6-2.4); Potassium, Blood 4.2 mmol/L (3.5-5.5); Total Protein, Blood 7.9 g/dL (6.4-8.2)
[2024-05-05 07:44] VITALS: BP 117/99
[2024-05-05] MEDS ORDERED: Enoxaparin 40 MG/0.4 ML SYR SC SCH (09:00)
[2024-05-05] MEDS ORDERED: Nicotine 7 MG PATCH TOP SCH (09:00)
[2024-05-05 15:54] VITALS: BP 155/78
--- NOTE | 2024-05-05 17:39 | NUR ---
pt states still not seen dr salinas. request bowel care, breathing treatment, something for cough, and states takes keppra for seizures. called dr garcia. he to come see pt. will place ordres.
[2024-05-05] MEDS ORDERED: Azithromycin 250 MG Tab PO SCH (18:00)
--- NOTE | 2024-05-05 18:47 | NUR ---
PT PLEASANT TODAY . MEDICATED FOR PAIN NEEDED. CALLED DR NARVAEZ RE NOT SEEN YET TODAY. AND PT REQUEST KEPPRA, STOOL MEDS, BREATHING MEDS, AND SOMETHING FOR COUGH. DR NARVAEZ STATES WILL SEE THIS GOLDY AND MAKE ORDRES. PT AMBULATES TO BATHROOM. MIN ASST. BED IN LOW POSITION, CALL LITE IN [facility] CALLS APPROP
[2024-05-05] MEDS ORDERED: Loperamide HCl 2 MG Cap PO PRN (20:55)
[2024-05-05] MEDS ORDERED: Bisacodyl 10 MG Supp PR PRN (20:55)
[2024-05-05 20:57] VITALS: BP 146/80
[2024-05-05] MEDS ORDERED: Magnesium Hydroxide Conc 10 ML UDC PO PRN (21:00)
[2024-05-05] MEDS ORDERED: LevETIRAcetam 500 MG Tab PO SCH (21:00)
[2024-05-05] MEDS ORDERED: Sod Phosphate/Sod Biphosphate 132 ML BTL PR PRN (21:00)
[2024-05-05] MEDS ORDERED: QUEtiapine Fumarate 50 MG TAB PO SCH (21:00)
[2024-05-05] MEDS ORDERED: Atorvastatin 10 MG Tab PO SCH (21:00)
[2024-05-05] MEDS ORDERED: QUEtiapine Fumarate 25 MG Tab PO PRN (21:00)
[2024-05-05] MEDS ORDERED: Guaifenesin/Dextromethorphan Syrup 5 ML UDC PO PRN (21:05)
[2024-05-05] MEDS ORDERED: Albuterol HFA200 ACT/6.7 GM INH INH PRN (21:10)
[2024-05-05] MEDS ORDERED: Triple Antibiotic Ointment Pack 0.9 GM TOP PRN (21:15)
[2024-05-05] MEDS ORDERED: Mag Hydrox/AL Hydrox/Simeth 30 ML UDC PO PRN (21:15)
[2024-05-05] MEDS ORDERED: Misc. Topical TOP PRN (21:15)
[2024-05-05] MEDS ORDERED: Miconazole Nitrate 2% 85 GM PWD TOP PRN (21:20)
[2024-05-05] MEDS ORDERED: Tiotropium Bromide 2.5 MCG/ACT MIST INHAL (10 ACT/4 GM) INH SCH (21:20)
[2024-05-05] MEDS ORDERED: Miconazole Nitrate 2% 43 GM PWD TOP PRN (21:20)
--- NOTE | 2024-05-05 22:51 | NUR ---
DR NARVAEZ IN TO SEE PATIENT AND REVIEW/UPDATE MEDICATION LIST. NEW ORDERS PLACED AND GIVEN PER EMAR. WCTM.
--- NOTE | 2024-05-06 04:13 | NUR ---
SHIFT SUMMARY PATIENT HAD NO ACUTE CHANGES. DR NARVAEZ IN TO SEE PATIENT AND REVIEW HER MEDICATIONS. AXOX 4 AND ONE ASSIST W/FWW TO BSC. DENIES CHEST PAIN, SOB, AND N/V. VSS/AFEBRILE. RT IN FOR BREATHING TX. GUAIFENESIN 10 mL GIVEN FOR COUGH WITH GOOD EFFECT. ON 4L O2 NC. PIV INTACT. CALL LIGHT IN REACH. BED IN LOWEST POSITION. WILL CONTINUE TO MONITOR UNTIL DAY SHIFT NURSE ASSUMES CARE.
[2024-05-06 04:15] VITALS: BP 147/73
[2024-05-06 07:31] VITALS: BP 132/67
[2024-05-06] MEDS ORDERED: Cholecalciferol 1000 Unit Tablet (=25MCG) PO SCH (09:00)
[2024-05-06] MEDS ORDERED: Potassium Chloride 10 Meq Tablet SA PO SCH (09:00)
[2024-05-06] MEDS ORDERED: Furosemide 20 MG Tab PO SCH (09:00)
[2024-05-06] MEDS ORDERED: Clopidogrel Bisulfate 75 MG Tab PO SCH (09:00)
[2024-05-06] MEDS ORDERED: Calcium Carbonate 1,250 MG TABLET PO SCH (09:00)
[2024-05-06 10:29] LABS: BASOPHILS ABSOLUTE AUTO 0.04 K/mm3 (0.00-0.23); BASOPHILS PERCENT AUTO 1 % (0-2); EOSINOPHILS ABSOLUTE AUTO 0.02 K/mm3 (0.00-0.68); EOSINOPHILS PERCENT AUTO 0 % (0-6); Hematocrit 34.9 % (33.0-51.0); Hemoglobin 11.3 g/dL (11.5-16.0); IMMATURE GRAN ABSOLUTE AUTO 0.03 K/mm3 (0.00-0.10); IMMATURE GRAN PERCENT AUTO 0 % (0-1); LYMPHOCYTES ABSOLUTE AUTO 1.17 K/mm3 (0.84-5.20); LYMPHOCYTES PERCENT AUTO 14 % (21-46); MONOCYTES PERCENT AUTO 7 % (4-13); Mean Corpuscular HGB 29.4 pg (26.0-34.0); Mean Corpuscular HGB Conc 32.4 g/dL (31.5-36.5); Mean Corpuscular Volume 91 fL (80-100); Mean Platelet Volume 10.8 fL (9.1-12.4); NEUTROPHILS ABSOLUTE AUTO 6.34 K/mm3 (1.96-9.15); NEUTROPHILS PERCENT AUTO 77 % (41-73); Platelet Count 165 K/mm3 (150-400); RDW Coefficient Variation 14.2 % (11.7-14.2); RDW Standard Deviation 47.5 fL (35.1-46.3); Red Blood Cell Count 3.84 M/mm3 (3.80-5.20)
[2024-05-06 10:51] LABS: Albumin, Blood 2.6 g/dL (3.4-5.0); Albumin/Globulin Ratio 0.5 (0.8-1.8); Bilirubin, Total 0.3 mg/dL (0.1-1.0); Bun/Creatinine Ratio 41.5 (12.0-20.0); Calcium, Blood 8.8 mg/dL (8.5-10.1); Creatinine, Blood 0.6 mg/dL (0.40-1.00); Globulin, Blood 4.8 g/dL (2.2-4.0); Potassium, Blood 4.3 mmol/L (3.5-5.5); Total Protein, Blood 7.4 g/dL (6.4-8.2)
--- NOTE | 2024-05-06 12:26 | NUR ---
CONFIDENTIAL PATIENT REQUESTING THAT CERTAIN FAMILY MEMBERS NOT VISIT. THIS RN EXPLAINED TO PATIENT ABOUT BEING CONFIDENTIAL. PATIENT STATED UNDERSTANDING AND WISHES TO BE CONFIDENTIAL. PATIENT CHOSE [employer]. PATIENT STATED SHE WOULD CALL THE FAMILY MEMBERS SHE DOES WANT TO VISIT AND TELL THEM THE PASSWORD. ADMITTING NOTIFIED. LILLI NOTIFIED.
--- NOTE | 2024-05-06 12:33 | NUR ---
TURNED O2 DOWN TO 3L 12:30, MAINTAINING O2 AT 93-94%
[2024-05-06 15:53] VITALS: BP 140/75
--- NOTE | 2024-05-06 18:27 | NUR ---
PT PLEASANT TODAY. DID CHANGE STATUS TO CONFIDENTIAL TODAY PER HER AND DAUGHTER REQUEST. CODE WORD IN CHART. PT TOLERATING 02 TURNED DOWN TO 3L O2 SINCE 12:30 TODAY. LUNG CONTINUE TO BE WHEEZY. RECEIVING BREATHING TREATMENTS. PT CONTINUES TO AMBULATE SBA TO BATHROOM AND CHAIR. NO OTHER NEW CONCERNS NOTED. BED INL OW POSITION, CALL LITE IN REACH, CALLS APROP
[2024-05-06 19:25] VITALS: BP 153/79
--- NOTE | 2024-05-07 04:39 | NUR ---
SHIFT SUMMARY DAY RN REPORTED PATIENT REQUESTED ENEMA ON PUMP ROOM OPERATOR AND GIVEN PER EMAR FOR CONSTIPATION. PATIENT HAD BM. REPORTED BACK PAIN X TWO AND TYLENOL GIVEN PER EMAR. DENIES CHEST PAIN, SOB, AND N/V. VSS/AFEBRILE. ON 3L O2 NC AND RA BASELINE. PIVS INTACT. CALL LIGHT IN REACH. BED IN LOWEST POSITION. WILL CONTINUE TO MONITOR UNTIL DAY SHIFT NURSE ASSUMES CARE.
[2024-05-07 05:29] VITALS: BP 133/77
[2024-05-07 07:44] VITALS: BP 138/69
[2024-05-07 10:52] LABS: BASOPHILS ABSOLUTE AUTO 0.02 K/mm3 (0.00-0.23); BASOPHILS PERCENT AUTO 0 % (0-2); EOSINOPHILS ABSOLUTE AUTO 0.08 K/mm3 (0.00-0.68); EOSINOPHILS PERCENT AUTO 1 % (0-6); Hematocrit 35.2 % (33.0-51.0); Hemoglobin 11.2 g/dL (11.5-16.0); IMMATURE GRAN ABSOLUTE AUTO 0.03 K/mm3 (0.00-0.10); IMMATURE GRAN PERCENT AUTO 0 % (0-1); LYMPHOCYTES ABSOLUTE AUTO 1.08 K/mm3 (0.84-5.20); LYMPHOCYTES PERCENT AUTO 15 % (21-46); MONOCYTES PERCENT AUTO 6 % (4-13); Mean Corpuscular HGB 28.9 pg (26.0-34.0); Mean Corpuscular HGB Conc 31.8 g/dL (31.5-36.5); Mean Corpuscular Volume 91 fL (80-100); NEUTROPHILS ABSOLUTE AUTO 5.43 K/mm3 (1.96-9.15); NEUTROPHILS PERCENT AUTO 77 % (41-73); Platelet Count 175 K/mm3 (150-400); RDW Coefficient Variation 13.9 % (11.7-14.2); RDW Standard Deviation 46.6 fL (35.1-46.3); Red Blood Cell Count 3.87 M/mm3 (3.80-5.20); White Blood Cell Count 7.04 K/mm3 (4.00-11.30)
[2024-05-07 11:05] LABS: Albumin, Blood 2.5 g/dL (3.4-5.0); Albumin/Globulin Ratio 0.6 (0.8-1.8); Bilirubin, Total 0.3 mg/dL (0.1-1.0); Bun/Creatinine Ratio 36.3 (12.0-20.0); Calcium, Blood 8.6 mg/dL (8.5-10.1); Creatinine, Blood 0.44 mg/dL (0.40-1.00); Globulin, Blood 4.5 g/dL (2.2-4.0); Potassium, Blood 3.8 mmol/L (3.5-5.5)
[2024-05-07 14:51] VITALS: BP 106/72
--- NOTE | 2024-05-07 18:19 | NUR ---
SHIFT SUMMARY PT A&OX4, VSS, ON 5L O2 NC, TOLERATING PO, VOIDING, AND PAIN MANAGED PER EMAR. ATTEMPT TO TITRATE O2 THIS SHIFT UNSUCCESSFUL. PT DESAT TO LOW 80S. NO OTHER ACUTE CHANGES. CALL LIGHT WITHIN REACH AND PT ABLE TO MAKE NEEDS KNOWN.
[2024-05-07 21:27] VITALS: BP 147/81
[2024-05-08 03:47] VITALS: BP 139/74
[2024-05-08 04:57] LABS: Hematocrit 35.3 % (33.0-51.0); Hemoglobin 11.3 g/dL (11.5-16.0); Mean Corpuscular HGB 28.6 pg (26.0-34.0); Mean Corpuscular Volume 89 fL (80-100); Mean Platelet Volume 11.1 fL (9.1-12.4); Platelet Count 185 K/mm3 (150-400); RDW Coefficient Variation 13.6 % (11.7-14.2); RDW Standard Deviation 45.1 fL (35.1-46.3); Red Blood Cell Count 3.95 M/mm3 (3.80-5.20); White Blood Cell Count 7.56 K/mm3 (4.00-11.30)
[2024-05-08 05:24] LABS: BASOPHILS PERCENT MAN 0 % (0-2); EOSINOPHILS ABSOLUTE MAN 0.22 K/mm3 (0.00-0.68); EOSINOPHILS PERCENT MAN 3 % (0-6); LYMPHOCYTES ABSOLUTE MAN 1.43 K/mm3 (0.84-5.20); LYMPHOCYTES PERCENT MAN 19 % (21-46); MONOCYTES ABSOLUTE MAN 0.37 K/mm3 (0.16-1.47); MONOCYTES PERCENT MAN 5 % (4-13); NEUTROPHILS ABSOLUTE MAN 5.51 K/mm3 (1.96-9.15); SEG NEUTROPHILS PERCENT MAN 73 % (41-73); TOTAL CELLS COUNTED 100
--- NOTE | 2024-05-08 05:29 | NUR ---
SHIFT SUMMARY NOC PT A/O X 4. PLEASANT AND COOPERATIVE WITH CARE. VSS. ON DROPLET ISOLATION FOR COVID 19. PT ON 5L/NC SPO2 >92%. NO ACUTE CHANGES TO REPORT. PT HAS NOT HAD C/O OF PAIN. REQUIRING SBA FWW TO BATHROOM AND TOLERATING WELL. PT CURRENTLY RESTING WITH BED ALARM ON, BED IN LOWEST POSITION, AND CALL LIGHT WITHIN REACH.
[2024-05-08 05:30] LABS: Albumin, Blood 2.5 g/dL (3.4-5.0); Anion Gap 6 mmol/L (3-11); Blood Urea Nitrogen 17 mg/dL (8-24); Bun/Creatinine Ratio 31.7 (12.0-20.0); CO2, Blood 32 mmol/L (21-32); Calcium, Blood 8.7 mg/dL (8.5-10.1); Chloride, Blood 104 mmol/L (98-108); Creatinine, Blood 0.54 mg/dL (0.40-1.00); Glomerular Filtration Rate 99 (60-); Glucose, Blood 103 mg/dL (70-99); Phosphorus, Blood 2.8 mg/dL (2.5-4.9); Potassium, Blood 4.1 mmol/L (3.5-5.5); Sodium, Blood 138 mmol/L (136-145)
[2024-05-08 07:29] VITALS: BP 126/64
[2024-05-08 15:06] VITALS: BP 127/67
--- NOTE | 2024-05-08 17:28 | NUR ---
SHIFT SUMMARY PT WORKED W/ OCCUPATIONAL THERAPY AND WAS UP IN THE CHAIR FOR DINNER. PT CONT TO REMAIN ON 5L O2 NC. PAIN MANAGED PER EMAR. NO OTHER ACUTE CHANGES. CALL LIGHT WITHIN REACH AND PT ABLE TO MAKE NEEDS KNOWN.
[2024-05-08 19:46] VITALS: BP 141/80
[2024-05-09 03:33] VITALS: BP 125/68
--- NOTE | 2024-05-09 04:41 | NUR ---
SHIFT SUMMARY 69 YR F ADMITTED ON 05/04/24. DNR. NO ACUTE CHANGES THIS SHIFT. PT WAS UP IN CHAIR FOR DINNER AND ATE ALL OF HER FOOD. PT FREQUENTLY REQUESTS ASSISTANCE WITH SMALL THINGS SHE IS ABLE TO DO HERSELF, SUCH SCOOTING UP IN THE BED. SHE IS ENCOURAGED BY STAFF TO WORK ON BEING MORE INDEPENDANT AND TO HAVE MORE CONFIDENCE IN HERSELF. PAIN BEING TREATED PER EMAR. PT SLEPT OFF AND ON THROUGHOUT SHIFT. WILL CONTINUE TO MONITOR. BED IN LOW POSITION AND CALL LIGHT IN REACH.
[2024-05-09 07:39] VITALS: BP 116/72
[2024-05-09] MEDS ORDERED: PredniSONE 20 MG Tab PO SCH (09:00)
[2024-05-09 15:06] VITALS: BP 132/72
--- NOTE | 2024-05-09 18:53 | NUR ---
SHIFT SUMMARY PT IS NOW ON 1L O2 NC. PT WORKED W/ PHYSICAL THERAPY THIS SHIFT AND TOLERATED IT WELL. NO OTHER ACUTE CHANGES. CALL LIGHT WITHIN REACH AND PT ABLE TO MAKE NEEDS KNOWN.
[2024-05-09 19:57] VITALS: BP 138/76
[2024-05-10 03:32] VITALS: BP 128/70
--- NOTE | 2024-05-10 04:51 | NUR ---
SHIFT SUMMARY 69 YR F ADMITTED ON 05/04/23. DNR. NO ACUTE CHANGES THIS SHIFT. PT IS TOLERATING 1 L O2 AND HAS MAINTAINED SATS WNL THROUGHOUT SHIFT. NO OTHER CHANGES TO REPORT. WILL CONTINUE TO MONITOR. BED IN LOW POSITION AND CALL LIGHT IN REACH.
[2024-05-10 07:23] VITALS: BP 145/74
[2024-05-10] MEDS ORDERED: PredniSONE 20 MG Tab PO SCH (09:00)
[2024-05-10 15:25] VITALS: BP 134/76
[2024-05-10 19:02] VITALS: BP 128/82
--- NOTE | 2024-05-10 19:12 | NUR ---
SHIFT SUMMARY: PT IS A/O X 3-4, SBA W/FWW TO BATHROOM PLEASANT AND COOPERATIVE WITH CARE. PT REPORTS PAIN TO RIGHT KNEE WHICH IS MANAGED WITH CURRENT MEDICATIONS ON JUN. PT WAS ON 1 LPM VIA NC THIS MORNING WITH SATS AT 96%. ATTEMPTED TO TITRATE TO ROOM AIR. WHEN PT GOT UP TO AMBULATE SATS DROPPED TO 87%-88%. APPLIED O2 AGAIN AND HAD TO TITRATE TO 5 LPM VIA NC TO GET SATS TO 92%. PT EVENTUALLY TITRATED DOWN AGAIN TO 2 LPM VIA NC THROUGHOUT THE REST OF THE DAY AND IS CURRENTLY ON 2 LPM VIA NC. PT DAUGHTER UPDATED ON PT STATUS.
[2024-05-11 01:37] VITALS: BP 114/52
--- NOTE | 2024-05-11 06:18 | NUR ---
SHIFT SUMMARY PT FORGETFUL AT TIMES. SLEPT SHORT INTERVALS DURING THE NIGHT. MEDICATED FOR PAIN X2 WITH TYLENOL- SEE EMAR. MEDICATED WITH MOM FOR CONSTIPATION THIS AM- SEE EMAR. O2 AT 2LNC WITH SATS>90%. OCCASSIONAL MOIST COUGH. BED IN LOWEST POSITION, CALL LIGHT WITHIN REACH, BED ALARM ON, SIDE RAILS UP X2.
[2024-05-11 07:14] VITALS: BP 146/76
[2024-05-11 15:38] VITALS: BP 121/65
--- NOTE | 2024-05-11 19:00 | NUR ---
SHIFT SUMMARY PATIENT WITH MINMAL PAIN END OF SHIFT RELIEVED BY TYLENOL. NO OTHER COMPLAINTS. BED IN LOW POSITION CALL LIGHT IN REACH. PATIENT ABLE TO SAFELY AMBULATE TO BATHROOM AND STEADY ON HER FEET.
[2024-05-12 05:11] VITALS: BP 139/85
--- NOTE | 2024-05-12 06:20 | NUR ---
SHIFT SUMMARY PT SLEPT INTERMITTENTLY THROUGH THE NIGHT. MEDICATED WITH TYLENOL FOR SHOULDER PAIN PER EMAR. AMBULATES TO THE BATHROOM WITH FWW AND 1 ASSIST. 2L NC MAINTAINED WITH SATS >92%. BED IN LOWEST POSITION, CALL LIGHT WITHIN REACH, SIDE RAILS UP X2.
[2024-05-12 07:34] VITALS: BP 121/66
[2024-05-12 15:22] VITALS: BP 120/65
--- NOTE | 2024-05-12 18:08 | NUR ---
SHIFT SUMMARY PATIENT AMBULATING SBA WITH WALKER IN ROOM, STEADY GAIT. A/O X4, RAMBLING SPEECH PATTERN. CONTINUES WITH 2 LITERS NC, PULSE OX WITH SATS 93-95%. CALL LIGHT IN REACH, ABLE TO MAKE NEEDS KNOWN. CARES ONGOING.
[2024-05-12 19:37] VITALS: BP 135/79
[2024-05-13 04:01] VITALS: BP 132/75
--- NOTE | 2024-05-13 05:33 | NUR ---
SHIFT SUMMARY PT SLEPT FOR LONG INTERVALS THROUGH THE NIGHT. MEDICATED WITH TYLENOL FOR VARYING PAIN PER EMAR. AT DIFFERENT TIMES, PT C/O RIGHT SHOULDER PAIN, RIGHT FOOT PAIN, AND RIGHT KNEE PAIN. PT AMBULATING TO BATHROOM WITH FWW AND SBA. SOME SOB WITH ACTIVITY. 2LNC MAINTAINED WITH SATS > 92%. BED IN LOWEST POSITION, CALL LIGHT WITHIN REACH, SIDERAILS UP X2.
[2024-05-13 07:20] VITALS: BP 136/72
--- NOTE | 2024-05-13 11:34 | NUR ---
MORNING NOTE THIS RN ASSUMED CARE AT APPROX 0715. PATIENT ALERT AND ORIENTED X3 - UNCLEAR TO CURRENT SITUATION. REQUIRING FREQUENT REORIENTATION TO USE OF CALL LIGHT AND PLAN OF CARE. VSS. ON 2L VIA NC, SATs >90%. RR EVEN, UNLABORED AT REST. MILD SHORTNESS OF BREATH WITH MOBILITY. CONTINUOUS PULSE OX IN PLACE. UP WITH SBA FWW GB. UP IN CHAIR TO EAT BREAKFAST. CALL LIGHT IN REACH.
[2024-05-13 15:34] VITALS: BP 125/60
--- NOTE | 2024-05-13 17:31 | NUR ---
SHIFT SUMMARY NO ACUTE CHANGES SINCE MORNING NOTE. SLEPT THROUGHOUT DAY. UP TO CHAIR WITH MEALS. PATIENT REMAINS ALERT AND ORIENTED X3. PROVIDING FREQUENT REORIENTATION TO CURRENT PLAN OF CARE. VSS. SBP 120s-130s. MAP >65. DENIES CHEST PAIN, PRESSURE. REMAINS ON 2L VIA NC, SATs >90%. CONTINUOUS PULSE OXIMETRY IN PLACE. RR EVEN, UNLABORED. EXPERIENCES EPISODES OF CONGESTED, PRODUCTIVE COUGH. UP TO RESTROOM WITH SBA FWW. VOIDING. DECLINED SHOWER TODAY. CALL LIGHT IN REACH. WILL CONTINUE TO MONITOR AND REPORT TO ONCOMING RN.
[2024-05-13 19:56] VITALS: BP 131/74
[2024-05-14 05:13] VITALS: BP 136/77
--- NOTE | 2024-05-14 05:50 | NUR ---
SHIFT SUMMARY PT C/O NO BM YESTERDAY. MEDICATED WITH MOM WITH +BM THIS AM. PT OOB WITH WALKER AND SBA. MEDICATED FOR PAIN WITH TYLENOL X2 PER EMAR. 2LNC MAINTAINED WITH O2 SATS > 92% PER CONTINUOUS PULSE OX. PT SLEPT INTERMITTENTLY THROUGH THE NIGHT. BED IN LOWEST POSITION, CALL LIGHT WITHIN REACH, SIDERAILS UP X2.
[2024-05-14 07:48] VITALS: BP 143/90
[2024-05-14] MEDS ORDERED: PRED20 PO (12:09)
[2024-05-14] MEDS ORDERED: Diclofenac Sodium 100 GM TUBE TOP PRN (14:30)
--- NOTE | 2024-05-14 14:45 | NUR ---
DISCHARGE: PT D/C @1400 VIA WHEELCHAIR TRANSPORT BACK TO [facility]. ALL BELONGINGS SENT WITH BLANK DRILLER. PACKET SENT WITH ENTRANCE GUARD. IV REMOVED BY COFFEE ATTENDANT W/O COMPLICATIONS. HOME 02 EVAL COMPLETED. RA NEEDED FOR REST AND EXERTION. NO QUESTIONS AT TIME OF D/C.
== END 2024-05-14 14:46 | disposition home or self-care (01) | DRG 189 ==
LOC: ER 11:21 → MEDS 14:51 → ENPENDDIS 05-11 13:46 → EDPENDDIS 05-11 13:46 → MEDS 05-14 14:46
PROVIDERS: Family Medicine; Student in an Organized Health Care Education/Training Program; ADMIT Internal Medicine
DX: J96.01 Acute respiratory failure with hypoxia (principal); A41.9 Sepsis, unspecified organism; J44.1 Chronic obstructive pulmonary disease with (acute) exacerbation; I42.9 Cardiomyopathy, unspecified; R18.8 Other ascites; I50.22 Chronic systolic (congestive) heart failure; J20.9 Acute bronchitis, unspecified; J43.9 Emphysema, unspecified; F03.A0 Unspecified dementia, mild, without behavioral disturbance, psychotic disturbance, mood disturbance, and anxiety; Z66 Do not resuscitate; B97.29 Other coronavirus as the cause of diseases classified elsewhere; K59.00 Constipation, unspecified; E78.2 Mixed hyperlipidemia; I11.0 Hypertensive heart disease with heart failure; R73.03 Prediabetes; G40.909 Epilepsy, unspecified, not intractable, without status epilepticus; K44.9 Diaphragmatic hernia without obstruction or gangrene; M19.90 Unspecified osteoarthritis, unspecified site; I25.10 Atherosclerotic heart disease of native coronary artery without angina pectoris; K21.9 Gastro-esophageal reflux disease without esophagitis; G47.00 Insomnia, unspecified; E78.5 Hyperlipidemia, unspecified; F17.200 Nicotine dependence, unspecified, uncomplicated; Z71.6 Tobacco abuse counseling; Z88.0 Allergy status to penicillin; Z88.8 Allergy status to other drugs, medicaments and biological substances; Z79.82 Long term (current) use of aspirin; Z79.899 Other long term (current) drug therapy; Z90.89 Acquired absence of other organs; Z98.890 Other specified postprocedural states; Z79.02 Long term (current) use of antithrombotics/antiplatelets
CPT/HCPCS: 0202U; 0241U; 36415; 71045; 71260; 74018; 80053; 80069; 82565; 83605; 83735; 83880; 84484; 85025; 87428-QW; 93005; 93010; 94640; 94644; 94664; 94760; 94762; 96365; 96374; 97116; 97162; 97165; 97530; 97535; 99285-25; A9270; J0360; J0456; J0696; J1650; J2919; J7050; J7512; Q9967

== ENCOUNTER 2024-06-05 00:44 | Emergency (ER) | payer MEDICARE, OTHER ==
[~2024-06-05] VITALS: Ht 147.3 cm; Wt 65.8 kg
[~2024-06-05 00:44] MED LIST changes: +ALBU90OI INH; +ALEVE ARTHRITI100 GM TOP; +ALMACONE SUSPE355 ML PO; +Acetaminophen650 M1 PO; +BISA10S PR; +DULCOLAX400 MG/5 M PO; +Fleet Enema132 ML PR; +ICY HOT TOP; +LOPE2C PO; +NYAMYC15 G1 TOP; +ONDA4ODT MM; +QUET25 PO; +Triple Antibi28.4 G1 TOP; +[UNRECOGNIZED DRUG - OTHER] TOP
[2024-06-05] MEDS ORDERED: Ondansetron HCl 2 MG / ML 2ML Vial IV ONE (01:30)
[2024-06-05 01:47] LABS: Source, Urine Clean Catch
[2024-06-05 01:47] LABS: BASOPHILS ABSOLUTE AUTO 0.06 K/mm3 (0.00-0.23); BASOPHILS PERCENT AUTO 1 % (0-2); EOSINOPHILS ABSOLUTE AUTO 0.11 K/mm3 (0.00-0.68); EOSINOPHILS PERCENT AUTO 1 % (0-6); Hematocrit 36.9 % (33.0-51.0); Hemoglobin 12.1 g/dL (11.5-16.0); IMMATURE GRAN ABSOLUTE AUTO 0.08 K/mm3 (0.00-0.10); IMMATURE GRAN PERCENT AUTO 1 % (0-1); LYMPHOCYTES ABSOLUTE AUTO 1.07 K/mm3 (0.84-5.20); LYMPHOCYTES PERCENT AUTO 8 % (21-46); MONOCYTES ABSOLUTE AUTO 0.82 K/mm3 (0.16-1.47); MONOCYTES PERCENT AUTO 7 % (4-13); Mean Corpuscular HGB 29.2 pg (26.0-34.0); Mean Corpuscular HGB Conc 32.8 g/dL (31.5-36.5); Mean Corpuscular Volume 89 fL (80-100); Mean Platelet Volume 11.4 fL (9.1-12.4); NEUTROPHILS ABSOLUTE AUTO 10.54 K/mm3 (1.96-9.15); NEUTROPHILS PERCENT AUTO 83 % (41-73); Platelet Count 169 K/mm3 (150-400); RDW Coefficient Variation 14.7 % (11.7-14.2); RDW Standard Deviation 47.5 fL (35.1-46.3); Red Blood Cell Count 4.15 M/mm3 (3.80-5.20); White Blood Cell Count 12.68 K/mm3 (4.00-11.30)
[2024-06-05 01:52] LABS: Bilirubin, Urine Neg (Neg); Blood, Urine Neg (Neg); Glucose Qualitative, Urine Neg (Neg); Ketones, Urine Neg (Neg); Leukocyte Esterase, Urine 2+ (Neg); Nitrite, Urine Neg (Neg); Protein, Urine 1+ (Neg); Specific Gravity, Urine 1.015 (1.003-1.022); Urobilinogen, Urine 1+ (Normal); pH, Urine 6.5 (5.0-8.0)
[2024-06-05 01:58] LABS: Appearance, Urine Hazy (Clear); Color, Urine Yellow (P-Yellow)
[2024-06-05 01:59] LABS: Amorphous Light (0-Heavy); Bacteria Few /hpf; Mucus Light (0-Heavy); Red Blood Cells, Urine Not Seen /hpf (0-2); Squamous Epithelial Cells Few /hpf (Few)
[2024-06-05 02:01] LABS: CORONAVIRUS COVID-19 AG Negative (NEGATIVE); INFLUENZA A AG Negative (NEGATIVE); INFLUENZA B AG Negative (NEGATIVE)
[2024-06-05 02:07] LABS: Albumin, Blood 3.3 g/dL (3.4-5.0); Albumin/Globulin Ratio 0.8 (0.8-1.8); Bilirubin, Total 0.3 mg/dL (0.1-1.0); Bun/Creatinine Ratio 25.1 (12.0-20.0); Calcium, Blood 8.9 mg/dL (8.5-10.1); Creatinine, Blood 0.68 mg/dL (0.40-1.00); Globulin, Blood 4.1 g/dL (2.2-4.0); Magnesium, Blood 2.2 mg/dL (1.6-2.4); Potassium, Blood 3.8 mmol/L (3.5-5.5); Total Protein, Blood 7.4 g/dL (6.4-8.2)
[2024-06-05 07:30] VITALS: BP 128/75
== END 2024-06-05 08:50 | disposition home or self-care (01) ==
LOC: ER 00:44
PROVIDERS: Student in an Organized Health Care Education/Training Program
DX: K57.90 Diverticulosis of intestine, part unspecified, without perforation or abscess without bleeding (principal); E78.5 Hyperlipidemia, unspecified; J44.9 Chronic obstructive pulmonary disease, unspecified; M19.90 Unspecified osteoarthritis, unspecified site; F17.210 Nicotine dependence, cigarettes, uncomplicated; Z79.02 Long term (current) use of antithrombotics/antiplatelets; Z79.899 Other long term (current) drug therapy; Z88.8 Allergy status to other drugs, medicaments and biological substances; Z88.0 Allergy status to penicillin
CPT/HCPCS: 71045; 74177; 80053; 81001; 83690; 83735; 85025; 87086; 87428-QW; 96374-59; 99285-25; J2405; Q9967

== ENCOUNTER → 2024-11-06 | Outpatient (CLI) | payer MEDICARE, OTHER ==
[2024-11-06 15:11] LABS: Source, Urine Clean Catch
[2024-11-06 16:44] LABS: Bilirubin, Urine Neg (Neg); Glucose Qualitative, Urine Neg (Neg); Ketones, Urine Neg (Neg); Leukocyte Esterase, Urine Neg (Neg); Protein, Urine Neg (Neg); Specific Gravity, Urine 1.010 (1.003-1.022); Urobilinogen, Urine NORM (Normal)
[2024-11-06 17:01] LABS: Color, Urine Pale Yellow (P-Yellow)
== END | disposition home or self-care (01) ==
LOC: LAB SHORT 15:06 → LAB 15:06
PROVIDERS: Physician Assistant
DX: N39.0 Urinary tract infection, site not specified (principal)
CPT/HCPCS: 81003